=== PATIENT | female | born 1955 | race American Indian/Alaskan Native ===

== ENCOUNTER 2019-06-05 12:50 | Emergency (ER) | payer SELFPAY ==
[2019-06-05 13:00] VITALS: BP 159/79
--- NOTE | 2019-06-05 14:27 | Emergency Department Report ---
ED Laceration HPI - HPI Chief Complaint: Wound/Laceration Stated Complaint: RT MID FINGER PAIN Time Seen by Provider: 06/05/19 14:15 Occurred When: Today Location: Upper Extremity Severity: mild Tetanus Status: Not up to Date Laceration Symptoms: Yes Pain, No Foreign Body Sensation, No Numbness, No Weakness Other History: This is a 64-year-old female who presents to the emergency room with a laceration to right fourth lateral finger. Patient states she was attempting to remove acrylic nails with a razor blade when she accidentally cut her finger. Tetanus vaccine is not up-to-date. Patient states her friend cleaned the wound with Betadine and peroxide and applied a gauze pressure dressing. She reports worsening pain with movement. ED Review of Systems ROS: Stated complaint: RT MID FINGER PAIN Other details as noted in HPI Constitutional: denies: chills, fever Respiratory: denies: cough, shortness of breath, wheezing Cardiovascular: denies: chest pain, palpitations Gastrointestinal: denies: abdominal pain, nausea, diarrhea Musculoskeletal: denies: back pain, joint swelling, arthralgia Skin: lesions (Laceration to right fourth lateral finger). denies: rash Neurological: denies: headache, weakness, paresthesias Psychiatric: denies: anxiety, depression ED Past Medical Hx - Past Medical History Previous Medical History?: No - Surgical History Past Surgical History?: No - Social History Smoking Status: Never Smoker Substance Use Type: None - Medications Home Medications: Home Medications Medication Instructions Recorded Confirmed Last Taken Type Clindamycin [Clindamycin CAP] 300 mg PO Q8H #21 cap 06/05/19 Unknown Rx Laceration Physical Exam - Exam General: Vital signs noted. No distress. Alert and acting appropriately. Wound Length (cm): 2 Laceration Location: Upper Extremity (Right fourth lateral phalanx) Laceration Exam: Yes Normal Distal CMS, No Foreign Body, No Exposed Tendon, V essel, or Nerve, No Tendon Injury ED Course Vital Signs 06/05/19 12:56 Temperature 98.4 F Pulse Rate 78 Respiratory 20 Rate Blood Pressure 159/79 O2 Sat by Pulse 100 Oximetry - Laceration /Wound Repair Right Lateral Finger Wound Location: upper extremity Wound Length (cm): 2 Wound's Depth, Shape: superficial, irregular Wound Explored: no foreign body removed Irrigated w/ Saline (ccs): 20 Betadine Prep?: Yes Anesthesia: 1% Lidocaine Volume Anesthetic (ccs): 1 Wound Repaired With: sutures Suture Size/Type: 4:0 Number of Sutures: 5 Layer Closure?: No Sterile Dressing Applied?: Yes ED Medical Decision Making - Medical Decision Making This is a 64 y.o. female presents with laceration to right fourth lateral finger. Patient is non-toxic appearing and stable. Given boostrix IM. Closure performed. Risk, benefits, and alternatives discussed with patient. Wound irrigated with normal saline 20 mL and Betadine. A Padgett Digital block performed with 2% lidocaine without epinephrine. Laceration closed with 4, 5-0 Prolene sutures, review suture note. Patient tolerated procedure well. A sterile dressing was applied. Local wound care discussed. Observe for signs of infection, bleeding, and follow up promptly if these symptoms occur. Suture removal in 7-10 days. Discharged home for outpatient treatment with cli ndamycin. Follow-up with PCP or return to ER for suture removal. Discussed ER care plan with patient. Patient agreed with plan. Critical care attestation.: If time is entered above; I have spent that time in minutes in the direct care of this critically ill patient, excluding procedure time. ED Disposition Clinical Impression: Laceration of finger Qualifiers: Encounter type: initial encounter Finger: ring finger Damage to nail status: without damage Foreign body presence: without foreign body Laterality: right Qualified Code(s): S61.214A - Laceration without foreign body of right ring finger without damage to nail, initial encounter Disposition: DC- TO HOME OR SELFCARE Is pt being admited?: No Condition: Stable Instructions: Suture Care (ED), Laceration (ED) Additional Instructions: Take antibiotics as prescribed for the full course. Keep wound dry and clean for 48 hours. Avoid putting to much tension on wound site. Prop arm up on pillows to decrease swelling. Follow up with Primary Care Provider in 2-3 days. Have sutures removed in 7-10 days by primary care provider or in ER. Return to ER if red, swollen, foul discharge, or fever. Prescriptions: Clindamycin [Clindamycin CAP] 300 mg PO Q8H #21 cap Referrals: [facility] [Outside] - 3-5 Days [facility] [Outside] - 3-5 Days [facility] [Outside] - 3-5 Days CARBUCCIA,JONE, MD [Staff Physician] - 3-5 Days Time of Disposition: 16:46
[2019-06-05] MEDS ORDERED: TETANUS,DIPH,PERTUSS(ACELL) VACCINE 0.5 ML SYRINGE IM ONE (15:50)
[2019-06-05] MEDS ORDERED: LIDOCAINE-MPF (1%) 10 MG/1 ML VIAL 5 ML INFILTRATI ONE (16:06)
[2019-06-05] MEDS ORDERED: LIDOCAINE-MPF (1%) 10 MG/1 ML VIAL 5 ML ONE (16:08)
== END 2019-06-05 16:50 | disposition home or self-care (01) ==
LOC: ED 12:50
DX: S61.214A Laceration without foreign body of right ring finger without damage to nail, initial encounter (principal); Z88.0 Allergy status to penicillin; Z88.8 Allergy status to other drugs, medicaments and biological substances; Z79.899 Other long term (current) drug therapy; W26.9XXA Contact with unspecified sharp object(s), initial encounter; Y93.89 Activity, other specified; Y92.89 Other specified places as the place of occurrence of the external cause; Y99.8 Other external cause status
CPT/HCPCS: 90471; 90715; 99282